=== PATIENT | female | born 1955 | race Caucasian/White ===

== ENCOUNTER 2017-06-18 21:44 | Emergency (ER) | payer SELFPAY ==
[~2017-06-18] VITALS: Ht 170.2 cm; Wt 79.4 kg
[2017-06-18] MEDS ORDERED: CALCIUM CHLOR(10%) 100MG/ML 10ML SYRINGE IV ONE (21:45)
[2017-06-18] MEDS ORDERED: DEXTROSE (50%) 50ML SYRG IV ONE (21:45)
[2017-06-18] MEDS ORDERED: EPINEPHrine HCL 1 MG/10 ML SYRG IV ONE (21:45)
[2017-06-18] MEDS ORDERED: ATROPINE SULF 0.5 MG/5ML SYR IV ONE (21:45)
[2017-06-18] MEDS ORDERED: SODIUM BICARBONATE 8.4% INJ 50ML SYRINGE IV ONE (21:45)
[2017-06-18] MEDS ORDERED: SODIUM BICARBONATE 8.4% INJ 50ML SYRINGE ONE ×2 (21:52→22:03)
[2017-06-18 21:58] VITALS: BP 0/0
[2017-06-18] MEDS ORDERED: SODIUM BICARBONATE 8.4 % INJ 50ML VIAL IV ONE ×2 (22:15)
[2017-06-18 22:33] LABS: Platelet Count (auto) 146 10^3/uL (140-450); Red Cell Distribution Width 14.1 % (11.8-14.3)
[2017-06-18 22:35] LABS: Hematocrit 51.6 % (36.0-46.0); Mean Corpuscular Hemoglobin 30.1 pg (28.0-32.0); Red Blood Cells 5.32 10^6/uL (4.0-5.20)
[2017-06-18 22:36] LABS: Band Neutrophils % (manual) 0; Basophils % (manual) 0 (0.0-2.0); Blast Cells 0; Metamyelocytes % 0; Myelocytes % 0; Promyelocytes % 0; Reactive Lymphocytes 0
[2017-06-18 22:40] LABS: INR 1.26 (0.9-1.15); Partial Thromboplastin Time 42.5 sec (22.64-33.71); Prothrombin Time 13.8 sec (9.37-12.3)
[2017-06-18 22:45] LABS: Albumin 2.5 g/dL (3.4-5.0); Calcium 8.6 mg/dL (8.5-10.1); Magnesium 2.6 mg/dL (1.6-2.6); Potassium 3.5 mmol/L (3.5-5.1)
[2017-06-18 22:47] LABS: BUN/Creatinine Ratio 16.1; Total Protein 6.6 g/dL (6.4-8.2)
[2017-06-18 22:54] LABS: Bilirubin, Total 0.3 mg/dL (0.2-1.0)
[2017-06-18 22:57] LABS: Eosinophils % (manual) 2 (0-7); Lymphocytes % (manual) 57 (10.0-50.0); Monocytes % (manual) 11 (0-12)
== END 2017-06-19 01:45 | disposition expired ==
LOC: ER 21:44 → EDBD 21:44 → ER 06-19 01:45
DX: I46.9 Cardiac arrest, cause unspecified (principal); E11.9 Type 2 diabetes mellitus without complications
CPT/HCPCS: 36415; 80053; 82962; 83735; 83880; 84484; 85007; 85027; 85610; 85730; 92950; 99285; J0171; J0461; J7042